=== PATIENT | female | born 1965 | race Caucasian/White ===

== ENCOUNTER 2020-10-13 21:16 | Observation (INO) ==
[2020-10-13 22:01] LABS: Basophils # (auto) 0.03 K/uL (0-0.2); Basophils % (auto) 0.4 %; Eosinophils # (auto) 0.17 K/uL (0-0.5); Hematocrit (blood only) 39.9 % (37-47); Hemoglobin 13.5 g/dL (12.0-16.0); Immature Granulocytes # (auto) 0.01 K/uL (0.00-0.02); Immature Granulocytes % (auto) 0.1 %; Lymphocytes # (auto) 3.26 K/uL (1.2-3.4); Lymphocytes % (auto) 39.1 %; Mean Corpuscular Hgb Conc 33.8 g/dL (32-36); Mean Corpuscular Volume 91.5 fL (80-100); Mean Platelet Volume 9.6 fL (7.4-10.4); Monocytes % (auto) 7.2 %; Neutrophils # (auto) 4.26 K/uL (1.4-6.5); Neutrophils % (auto) 51.2 %; Platelet Count 293 K/uL (130-400); RDW Coefficient of Variation 13.1 % (11.5-14.5); Red Blood Count 4.36 M/uL (4.2-5.4); White Blood Count 8.33 K/uL (4.8-10.8)
[2020-10-13] MEDS ORDERED: OPTIRAY 320 125ml IV ONE (22:05)
--- NOTE | 2020-10-13 22:08 | Emergency Department Note ---
History of Present Illness General Chief complaint: Neuro Symptoms/Deficit Stated complaint: NEURO SX Time Seen by Provider: 10/13/20 21:39 Source: patient and family History of Present Illness Provider complaint: Right arm pain Onset (ago): hour(s) (Starting at 8 PM tonight) Location: upper extremity and left Radiation: non-radiation Pain Consistency: + constant Maximum Pain Intensity: 6 Quality: + sharp Relieved By: + none Associated symptoms: + shortness of breath; no chest pain, no cough, no fever/chills, no headaches, no nausea/vomiting and no syncope This is a 55-year-old female with a history of breast cancer presenting with left arm pain starting approximately 8 PM tonight. The patient states she was sitting and not doing anything in particular when she developed pain in the Left bicep. She states that sharp and radiated down to her fingers. She denies any pain in her neck or chest. She states that she did feel short of breath and felt like something was not right. She did not know exactly what. She does think that about 1/2-hour prior to this she felt some weakness in the left arm. She denies any numbness in her extremities and states the left arm feels heavy. She states that her legs feel weak as well.She called her daughter who came over. Her daughter states that she was shaking all over and was talking to her telling her that something was not right. They called EMS. The nurse notes that when she arrived here she was hyperventilating and complaining of paresthesias to her fingers and they try to slow her breath down. She states she is not currently short of breath. She is complaining mostly of arm pain. She denies any trouble swallowing but states her tongue feels thick as if it is dehydrated.She denies any headache, fever, cough or cold symptoms, abdominal pain, vomiting or diarrhea. She denies exposure to COVID-19. Home Medications Medication Instructions Recorded Confirmed Type cetirizine 10 mg capsule 10 mg PO DAILY PRN 12/31/19 10/13/20 History multivitamin 1 tab PO DAILY 12/31/19 10/13/20 History calcium carbonate-vitamin D3 1 tab PO BID 10/13/20 10/13/20 History [Calcium 600 + D(3)] Allergies Allergy/AdvReac Type Severity Reaction Status Date / Time No Known Allergies Allergy Verified 10/13/20 21:42 Past Med/Surg History Medical History Allergic rhinitis Degeneration of intervertebral disc of cervical region H/O viral warts Neuralgia and neuritis Perforated tympanic membrane Sebopsoriasis Spondylosis with myelopathy Status post placement of implantable loop recorder Surgical History H/O right breast biopsy History of bilateral cataract extraction Family History Mother Breast cancer DCIS Father , age 74 unknown cause Diabetes Sister No problems noted. Sister No problems noted. Sister No problems noted. Sister No problems noted. Sister No problems noted. Brother No problems noted. Brother No problems noted. 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 and A total of 10 systems reviewed and were otherwise negative Physical Exam Vital Signs Vital Signs - 24 hr 10/13/20 21:41 10/13/20 21:58 10/13/20 22:09 Temperature 36.5 C Temperature Source Oral Pulse Rate 109 H 107 H Pulse Rate from SpO2 Sensor 109 H Respiratory Rate 18 25 H Blood Pressure 151/89 H 145/103 H Blood Pressure Mean 109 122 Pulse Oximetry 100 99 96 Oxygen Delivery Method Room Air Room Air Room Air Sepsis Recent Fever Within 48 Hours No Sepsis New/Unexplained Change in Mental Status N/A Sepsis Action Taken by Nursing No Action Required 10/13/20 22:33 10/13/20 22:40 10/13/20 23:00 Temperature Temperature Source Pulse Rate 105 H 101 H 91 H Pulse Rate from SpO2 Sensor 101 H 92 H Respiratory Rate 20 23 14 Blood Pressure 141/89 H 147/90 H 134/77 Blood Pressure Mean 101 113 88 Pulse Oximetry 97 96 Oxygen Delivery Method Room Air Room Air Sepsis Recent Fever Within 48 Hours Sepsis New/Unexplained Change in Mental Status Sepsis Action Taken by Nursing Constitutional: Vital signs reviewed. Eyes: Pupils are equal round reactive to light. Conjunctiva are noninjected. ENT: Pharynx is clear without erythema or exudate. Mucous membranes are moist. Neck supple without meningeal signs. Respiratory: Clear to auscultation bilaterally. Breath sounds are equal bilaterally. Cardiovascular: Tachycardic. Regular rhythm. GI: Soft, nondistended and nontender. Bowel sounds are present. Musculoskeletal: No peripheral edema. No lower extremity tenderness. No swelling to the left upper extremity. Distal pulses are intact. Mild tenderness with palpation of her bicep. No deformity or erythema or increased warmth. Integumentary: No cyanosis. or jaundice. Neurologic: The patient is awake and alert. Cranial nerves II-XII are intact. Motor is 5 out of 5 all extremities except the left upper extremity which is 4 out of 5. Sensation is intact to light touch all extremities. Normal speech. No pronator drift. No limb ataxia. Psychiatric: Very anxious appearing Course Administered Medications Magnesium Sulfate/Dextrose (Magnesium Sulfate / D5w) 1 gm in 100 mls @ 50 mls/hr IV ONE ONE Stop: 10/14/20 01:17 Last Admin: 10/13/20 23:42 Dose: 50 mls/hr Documented by: [id number] Discontinued Medications Aspirin (Aspirin Chew 324 Mg) 324 mg PO NOW STA Stop: 10/13/20 23:02 Last Admin: 10/13/20 23:42 Dose: 324 mg Documented by: [id number] Ioversol (Optiray 320 125ml) 118 ml IV ONCE ONE Stop: 10/13/20 22:06 Last Admin: 10/13/20 22:07 Dose: 118 ml Documented by: [id number] Medical Decision Making Differential Diagnosis CVA, TIA, intracranial mass, anginal equivalent, strain Medical Records Attestation: I reviewed the patient's medical records. The patient was seen by [facility] cardiology in November for a 9-month history of syncope. She had an electrophysiologic study. Stress echocardiogram showed no evidence of inducible ischemia. She did have a 2D echo which showed a atrial septal aneurysm. There is a possible patent foramen ovale. Home Medications Current Medication List: was personally reviewed by me Laboratory Data Attestation: I reviewed the patient's lab results. Result diagrams: 10/13/20 21:35 10/13/20 21:35 Lab Results 10/13/20 10/13/20 10/13/20 Range/Units 21:35 21:35 21:35 WBC 8.33 (4.8-10.8) K/uL RBC 4.36 (4.2-5.4) M/uL Hgb 13.5 (12.0-16.0) g/dL Hct 39.9 (37-47) % MCV 91.5 (80-100) fL MCH 31.0 (25-34) pg MCHC 33.8 (32-36) g/dL RDW Std Deviation 44.0 (36.4-46.3) fL RDW Coeff of Renato 13.1 (11.5-14.5) % Plt Count 293 (130-400) K/uL MPV 9.6 (7.4-10.4) fL Immature Gran % (Auto) 0.1 % Neut % (Auto) 51.2 % Lymph % (Auto) 39.1 % [place] % (Auto) 7.2 % Eos % (Auto) 2.0 % Baso % (Auto) 0.4 % Neut # (Auto) 4.26 (1.4-6.5) K/uL Lymph # (Auto) 3.26 (1.2-3.4) K/uL [place] # (Auto) 0.60 H (0.11-0.59) K/uL Eos # (Auto) 0.17 (0-0.5) K/uL Baso # (Auto) 0.03 (0-0.2) K/uL Immature Gran # (Auto) 0.01 (0.00-0.02) K/uL PT 10.2 (9.0-12.0) Seconds INR 1.0 (0.9-1.1) APTT 31.8 H (21.0-31.0) Seconds PTT Ratio 1.1 Sodium 142 (136-145) mmol/L Potassium 3.7 (3.5-5.1) mmol/L Chloride 110 H (98-107) mmol/L Carbon Dioxide 22 (21-32) mmol/L Anion Gap 10.0 (3-11) BUN 21 H (7-18) mg/dl Creatinine 1.07 (0.6-1.2) mg/dl Est Cr Clr Drug Dosing 55.3 ml/min Est GFR ( Amer) 66.7 Est GFR (Non-Af Amer) 57.6 BUN/Creatinine Ratio 20.0 (10-20) Glucose 106 H (70-99) mg/dl Calcium 9.2 (8.5-10.1) mg/dl Magnesium 1.7 L (1.8-2.4) mg/dl Total Bilirubin 0.3 (0.2-1) mg/dl AST 26 (15-37) U/L ALT 30 (12-78) U/L Alkaline Phosphatase 107 (45-117) U/L Troponin I < 0.015 (0-0.045) ng/ml Total Protein 7.4 (6.4-8.2) gm/dl Albumin 3.9 (3.4-5.0) gm/dl Globulin 3.5 (2.5-4.0) gm/dl Albumin/Globulin Ratio 1.1 (0.9-2) Specimen Hemolysis Blood Type Antibody Screen 10/13/20 Range/Units 21:55 WBC (4.8-10.8) K/uL RBC (4.2-5.4) M/uL Hgb (12.0-16.0) g/dL Hct (37-47) % MCV (80-100) fL MCH (25-34) pg MCHC (32-36) g/dL RDW Std Deviation (36.4-46.3) fL RDW Coeff of Renato (11.5-14.5) % Plt Count (130-400) K/uL MPV (7.4-10.4) fL Immature Gran % (Auto) % Neut % (Auto) % Lymph % (Auto) % [place] % (Auto) % Eos % (Auto) % Baso % (Auto) % Neut # (Auto) (1.4-6.5) K/uL Lymph # (Auto) (1.2-3.4) K/uL [place] # (Auto) (0.11-0.59) K/uL Eos # (Auto) (0-0.5) K/uL Baso # (Auto) (0-0.2) K/uL Immature Gran # (Auto) (0.00-0.02) K/uL PT (9.0-12.0) Seconds INR (0.9-1.1) APTT (21.0-31.0) Seconds PTT Ratio Sodium (136-145) mmol/L Potassium (3.5-5.1) mmol/L Chloride (98-107) mmol/L Carbon Dioxide (21-32) mmol/L Anion Gap (3-11) BUN (7-18) mg/dl Creatinine (0.6-1.2) mg/dl Est Cr Clr Drug Dosing ml/min Est GFR ( Amer) Est GFR (Non-Af Amer) BUN/Creatinine Ratio (10-20) Glucose (70-99) mg/dl Calcium (8.5-10.1) mg/dl Magnesium (1.8-2.4) mg/dl Total Bilirubin (0.2-1) mg/dl AST (15-37) U/L ALT (12-78) U/L Alkaline Phosphatase (45-117) U/L Troponin I (0-0.045) ng/ml Total Protein (6.4-8.2) gm/dl Albumin (3.4-5.0) gm/dl Globulin (2.5-4.0) gm/dl Albumin/Globulin Ratio (0.9-2) Specimen Hemolysis Blood Type A Positive Antibody Screen NEGATIVE Imaging Data Radiologist's Impression: Preliminary Findings Only See Final Report For Complete Findings CT HEAD: Impression: No intracranial hemorrhage or evidence of large territorial infarction. No mass lesion, mass effect, or hydrocephalus. No skull base or calvarium fracture. Radiologist: Anmol Blackwood MD Study ready at 22:10 and initial results transmitted at 22:14 Communications: Clear Time Type Notes Call Doctor Stroke Preliminary Findings Only See Final Report For Complete Findings CTA HEAD: Impression: No large vessel occlusion, aneurysm, or hemodynamically significant stenosis. Radiologist: Anmol Blackwood MD Study ready at 22:18 and initial results transmitted at 22:25 Preliminary Findings Only See Final Report For Complete Findings CTA NECK: Impression: No dissection, pseudoaneurysm, or hemodynamically significant stenosis of the carotid or vertebral arteries. Multilevel degenerative changes cervical spine which results in varying degrees of spinal canal stenosis and foraminal narrowing. Radiologist: Anmol Blackwood MD Study ready at 22:24 and initial results transmitted at 22:28 ECG Data Attestation: I personally reviewed and interpreted this ECG as follows: Indication: + other (Stroke symptoms) Rate (beats per minute): 94 Rhythm: + normal sinus ECG ST segments: + ST depression (Inferior laterally); no ST elevation ECG Findings: no PVCs Comparison ECG Date: from (November 12, 2019) Change: the following changes noted (ST depressions appear to be new) MDM Narrative I did evaluate the patient as noted above. Patient is presenting with atypical symptoms for stroke. She has left arm pain and weakness starting at approximately 7:30 PM tonight.On exam she does have some mild weakness in the left arm but otherwise is neurologically intact. She is extremely anxious appearing. I did obtain history from the patient as well as her daughter. I did call a stroke alert. I did discuss the case with the [place] stroke neurologist. IV access was established. I did place an order for continuous cardiac monitoring. The monitor showed Normal sinus rhythm at a rate of 91 bpm. I did order and personally review the patient's 12-lead EKG as described above. She has ST depressions in the inferior lateral leads. These were not present on her previous EKG from November of this year.She denies having any chest discomfort or pain. I did order a stat CT of the head as well as CT angiogram of the head and neck. I did review the images myself as well as the radiology report as described above.there is no evidence of acute CVA or intracranial process. CT angiograms did not show any evidence of acute abnormality. I did order and review the patient's blood work as noted in the electronic medical record. She has hypomagnesemia with a magnesium of 1.7. Troponin is negative. CBC and electrolytes are unremarkable. On reassessment the patient's symptoms seem to be improved significantly after CAT scan. She also is no longer anxious appearing. She was seen by the stroke neurologist via telemedicine who agreed that IV TPA was not indicated given her mild and rapidly improving symptoms as well as atypical presentation. After evaluation of patient he recommended that the patient have an MRI and EEG. I did treat the patient with aspirin. I did recommend hospitalization for further work-up. I did discuss the case with the hospitalist and piano case maker. Impression & Plan Left arm weakness, Arm pain, left, Abnormal ECG, Hypomagnesemia Discharge Plan Visit Data Chief Complaint: Neuro Symptoms/Deficit Stated Complaint: NEURO SX ED Provider: Juan Dang Discharge Problem: Left arm weakness, Arm pain, left, Abnormal ECG, Hypomagnesemia Patient Disposition: Being Evaluated by Hospitalist Forms Stand Alone Forms: [facility] Prescriptions Prescriptions: No Action multivitamin Tablet 1 tab PO DAILY RF: 0 Zyrtec 10 mg capsule 10 mg PO DAILY PRN (Reason: Allergy Symptoms) RF: 0 calcium carbonate-vitamin D3 [Calcium 600 + D(3)] 600 mg(1,500mg) -400 unit tablet 1 tab PO BID RF: 0 Referrals Referrals: Brennan Mcleod MD [Primary Care Provider] -
[2020-10-13 22:14] LABS: Partial Thromboplastin Ratio 1.1; Partial Thromboplastin Time 31.8 Seconds (21.0-31.0); Prothrombin Time 10.2 Seconds (9.0-12.0)
[2020-10-13 22:21] LABS: Alanine Aminotransferase 30 U/L (12-78); Albumin Globulin Ratio 1.1 (0.9-2); Albumin Level 3.9 gm/dl (3.4-5.0); Alkaline Phosphatase 107 U/L (45-117); Aspartate Aminotransferase 26 U/L (15-37); Bilirubin,Total 0.3 mg/dl (0.2-1); Blood Urea Nitrogen 21 mg/dl (7-18); Calcium 9.2 mg/dl (8.5-10.1); Carbon Dioxide 22 mmol/L (21-32); Chloride 110 mmol/L (98-107); Creatinine Clr Calc Pharmacy 55.3 ml/min; Est GFR (African American) 66.7; Est GFR (Non-African American) 57.6; Globulin 3.5 gm/dl (2.5-4.0); Glucose 106 mg/dl (70-99); Magnesium 1.7 mg/dl (1.8-2.4); Potassium 3.7 mmol/L (3.5-5.1); Sodium 142 mmol/L (136-145); Total Protein 7.4 gm/dl (6.4-8.2); Troponin I < 0.015 ng/ml (0-0.045)
[2020-10-13] MEDS ORDERED: ASPIRIN CHEW 324 MG PO STA (23:01)
[2020-10-13] MEDS ORDERED: MAGNESIUM SULFATE / D5W 1 GM/100 ML BAG IV ONE (23:18)
[2020-10-13] MEDS ORDERED: LACTATED RINGER'S 1,000 ML IV ONE (23:29)
--- NOTE | 2020-10-14 00:30 | History & Physical Report ---
Date of Service October 14, 2020 Assessment & Plan (1) Left arm weakness: Transient symptoms Rule out TIA, hx PFO on outpatient TTE for syncope workup breast cancer status post surgery, radiation, on Letrozole Rx recurrent syncope status post implantable loop recorder placement (2018), No arrhythmias correlating with patient's symptoms on review of recent transmission as per outpatient documentation ongoing tobacco abuse OBS Medical telemetry Neurochecks MRI brain, EEG as per [facility] telestroke specialist recommendation Aspirin for stroke prevention until stroke ruled out Neurology consult RE transient LUE weakness Nicotine patch as needed DVT prophylaxis per Lovenox subcu Full code Text document was generated using [employer] voice recognition software. It may contain grammatical or spelling errors. Kindly contact undersigned for clarification of any documentation item in question. History of Present Illness Chief Complaint: Left upper extremity pain, weakness Primary Care Provider: Brennan Mcleod MD History obtained from patient and records. Medical history significant for breast cancer status post surgery, radiation, on Letrozole Rx, recurrent syncope status post implantable loop recorder placement (2019), hx PFO, ongoing tobacco abuse. Patient was watching television last night when she noted sudden onset achy left upper extremity pain with associated weakness and tingling of the hands. No unusual neck pain or recollection of recent trauma.. No prior episodes. No chest pain, no S OB. Stroke alert called upon arrival at the ER. Aspirin given at the ER. Symptoms currently resolved. Medical History as above Surgical History : Breast biopsy, partial mastectomy, BTL Family History : Breast cancer, DM, migraine Personal/Social history : Sick cigarettes a day, no EtOH intake, currently unemployed/prior restaurant work Allergies Allergy/AdvReac Type Severity Reaction Status Date / Time No Known Allergies Allergy Verified 10/13/20 21:42 Home Medications Medication Instructions Recorded Confirmed Type cetirizine 10 mg capsule 10 mg PO DAILY PRN 12/31/19 10/13/20 History multivitamin 1 tab PO DAILY 12/31/19 10/13/20 History calcium carbonate-vitamin D3 1 tab PO BID 10/13/20 10/13/20 History [Calcium 600 + D(3)] Past Med/Surg History Medical History Allergic rhinitis Degeneration of intervertebral disc of cervical region H/O viral warts Neuralgia and neuritis Perforated tympanic membrane Sebopsoriasis Spondylosis with myelopathy Status post placement of implantable loop recorder Surgical History H/O right breast biopsy History of bilateral cataract extraction Family History Mother Breast cancer DCIS Father , age 74 unknown cause Diabetes Sister No problems noted. Sister No problems noted. Sister No problems noted. Sister No problems noted. Sister No problems noted. Brother No problems noted. Brother No problems noted. 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 Other Information That Helps Us Care for You: No Feels Safe at Home: Yes Safety Concerns: Feels Safe At This Time Childhood Exposure to Second-Hand Smoke: No caffeine: Yes (coffee 4-5 cups per day) during the past year weight has: remained stable Dental Care, Regularly: Yes Physical Activity Frequency: Does not Exercise Seatbelt Use: always Sunscreen Use: Yes Assistive Devices: Glasses Review of Systems Review of Systems: As per HPI, all 10 systems reviewed, all other ROS negative Physical Exam Physical Exam: GENERAL: Comfortable, pleasant, no respiratory distress SKIN: Normal color, warm HEENT: [place] palpebral conjunctivae, no ptosis, dry buccal mucosa NECK : Supple, no tenderness CHEST : CTA, no tenderness HEART : RRR, no obvious murmurs ABDOMEN: Some distention, nontender EXTREMITIES : No LE swelling/tenderness, no other conspicuous deformities noted NEUROLOGIC : Coherent, no facial asymmetry, no other gross focality Results & Data Results & Data ([facility]) Vital Signs (Past 12 Hours) Vital Signs Temp Pulse Resp BP Pulse Ox 10/13/20 23:00 91 H 14 134/77 96 10/13/20 22:40 101 H 23 147/90 H 97 10/13/20 22:33 105 H 20 141/89 H 10/13/20 22:09 107 H 25 H 145/103 H 96 10/13/20 21:58 99 10/13/20 21:41 36.5 C 109 H 18 151/89 H 100 Laboratory Results Laboratory Results WBC 8.33 K/uL (4.8-10.8) 10/13/20 21:35 RBC 4.36 M/uL (4.2-5.4) 10/13/20 21:35 Hgb 13.5 g/dL (12.0-16.0) 10/13/20 21:35 Hct 39.9 % (37-47) 10/13/20 21:35 MCV 91.5 fL (80-100) 10/13/20 21:35 MCH 31.0 pg (25-34) 10/13/20 21:35 MCHC 33.8 g/dL (32-36) 10/13/20 21:35 RDW Std Deviation 44.0 fL (36.4-46.3) 10/13/20 21:35 RDW Coeff of Renato 13.1 % (11.5-14.5) 10/13/20 21:35 Plt Count 293 K/uL (130-400) 10/13/20 21:35 MPV 9.6 fL (7.4-10.4) 10/13/20 21:35 Immature Gran % (Auto) 0.1 % 10/13/20 21:35 Neut % (Auto) 51.2 % 10/13/20 21:35 Lymph % (Auto) 39.1 % 10/13/20 21:35 [place] % (Auto) 7.2 % 10/13/20 21:35 Eos % (Auto) 2.0 % 10/13/20 21:35 Baso % (Auto) 0.4 % 10/13/20 21:35 Neut # (Auto) 4.26 K/uL (1.4-6.5) 10/13/20 21:35 Lymph # (Auto) 3.26 K/uL (1.2-3.4) 10/13/20 21:35 [place] # (Auto) 0.60 K/uL (0.11-0.59) H 10/13/20 21:35 Eos # (Auto) 0.17 K/uL (0-0.5) 10/13/20 21:35 Baso # (Auto) 0.03 K/uL (0-0.2) 10/13/20 21:35 Immature Gran # (Auto) 0.01 K/uL (0.00-0.02) 10/13/20 21:35 PT 10.2 Seconds (9.0-12.0) 10/13/20 21:35 INR 1.0 (0.9-1.1) 10/13/20 21:35 APTT 31.8 Seconds (21.0-31.0) H 10/13/20 21:35 PTT Ratio 1.1 10/13/20 21:35 Sodium 142 mmol/L (136-145) 10/13/20 21:35 Potassium 3.7 mmol/L (3.5-5.1) 10/13/20 21:35 Chloride 110 mmol/L (98-107) H 10/13/20 21:35 Carbon Dioxide 22 mmol/L (21-32) 10/13/20 21:35 Anion Gap 10.0 (3-11) 10/13/20 21:35 BUN 21 mg/dl (7-18) H 10/13/20 21:35 Creatinine 1.07 mg/dl (0.6-1.2) 10/13/20 21:35 Est Cr Clr Drug Dosing 55.3 ml/min 10/13/20 21:35 Est GFR ( Amer) 66.7 10/13/20 21:35 Est GFR (Non-Af Amer) 57.6 10/13/20 21:35 BUN/Creatinine Ratio 20.0 (10-20) 10/13/20 21:35 Glucose 106 mg/dl (70-99) H 10/13/20 21:35 Calcium 9.2 mg/dl (8.5-10.1) 10/13/20 21:35 Magnesium 1.7 mg/dl (1.8-2.4) L 10/13/20 21:35 Total Bilirubin 0.3 mg/dl (0.2-1) 10/13/20 21:35 AST 26 U/L (15-37) 10/13/20 21:35 ALT 30 U/L (12-78) 10/13/20 21:35 Alkaline Phosphatase 107 U/L (45-117) 10/13/20 21:35 Troponin I < 0.015 ng/ml (0-0.045) 10/13/20 21:35 Total Protein 7.4 gm/dl (6.4-8.2) 10/13/20 21:35 Albumin 3.9 gm/dl (3.4-5.0) 10/13/20 21:35 Globulin 3.5 gm/dl (2.5-4.0) 10/13/20 21:35 Albumin/Globulin Ratio 1.1 (0.9-2) 10/13/20 21:35 Specimen Hemolysis 10/13/20 21:35 Blood Type A Positive 10/13/20 21:55 Antibody Screen NEGATIVE 10/13/20 21:[address] head initial read: No intracranial hemorrhage or evidence of large territorial infarction. No mass lesion, mass-effect or hydrocephalus. No skull base or calvarium fracture. CTA head initial read: There is no hemorrhage, mass effect, or evidence of acute territorial ischemia by CT criteria noting angiographic phase technique. CTA neck initial read: No dissection, pseudoaneurysm, or hemodynamically significant stenosis of the carotid or vertebral arteries. Venous ultrasound LUE: No evidence of left upper extremity DVT. EKG as per my interpretation: Rate 95, NSR, normal axis, T wave abnormalities septal leads
[2020-10-14 01:16] LABS: Creatine Kinase 81 U/L (26-192)
[2020-10-14 01:33] LABS: Lyme Ab IgG w/WB Rflx Negative (Negative); Lyme Ab IgM w/WB Rflx Negative (Negative)
[2020-10-14] MEDS ORDERED: PHARMACIST DISCHARGE MED REC CONSULT PRN (02:20)
[2020-10-14] MEDS ORDERED: ACETAMINOPHEN 325 MG TAB PO PRN (02:20)
[2020-10-14] MEDS ORDERED: PROMETHAZINE HCL 12.5 MG in SODIUM CHLORIDE 0.9% 50 ML IV PRN (02:20)
[2020-10-14] MEDS ORDERED: CETIRIZINE HCL 10 MG TABLET PO PRN (02:20)
[2020-10-14] MEDS ORDERED: MoRPHine SULFATE 4 MG/ML 1 ML CARP\\VIAL IV PRN (02:20)
[2020-10-14] MEDS ORDERED: LORazepam 0.25 MG/0.5 ML VIAL IV PRN (02:20)
[2020-10-14] MEDS ORDERED: oxyCODONE HCL IR 5 MG TAB (IMMEDIATE RELEASE) PO PRN (02:20)
[2020-10-14] MEDS ORDERED: INFLUENZA VIRUS QUAD VACCINE 0.5 ML SYR IM ONE (02:32)
[2020-10-14] MEDS ORDERED: INFLUENZA ADMINISTRATION CHARGE ONE (02:32)
--- NOTE | 2020-10-14 06:45 | CT Scan Report ---
CT head/brain wo con CLINICAL HISTORY: 55 years-old Female with left arm weak eval for cva. Acute strokelike symptoms TECHNIQUE: Multiple axial CT images of the head were obtained without contrast. A dose lowering tech nique was utilized adhering to the principles of ALARA. COMPARISON: CTA of the head and neck and brain MRI studies of same day FINDINGS: No acute intracranial hemorrhage, midline shift, intracranial mass, hydrocephalus, territorial ischem ia or abnormal extra-axial collection. The calvarium is intact. Trace right mastoid effusion. Left mastoid air cells are clear. Paranasal s inuses are also generally clear. IMPRESSION: No acute intracranial abnormality. ACT 112: Negative or not required by law. The above report was generated using voice recognition software. It may contain grammatical, syntax o r spelling errors. Electronically signed by: Blu Mcintosh M.D. 10/14/2020 6:44 AM
--- NOTE | 2020-10-14 06:49 | Magnetic Resonance Report ---
MR brain wo con HISTORY: 55 years-old Female transient LUE weakness acute strokelike symptoms COMPARISON: CTA of the head, CTA head and neck studies of same day TECHNIQUE: Multiplanar multisequence MRI of the brain was obtained without the use of IV contrast. FINDINGS: There is no restricted diffusion to suggest acute or subacute infarct. The midline structures includi ng the corpus callosum, brainstem, optic chiasm, pituitary and pineal glands appear unremarkable the sagittal T1 series. No cerebellar tonsillar herniation. There is no acute intracranial hemorrhage, midline shift, abnormal extra-axial collection, hydrocepha stacia or intracranial mass. There are a few scattered punctate T-2/flair hyperintensities throughout th e white matter, likely of no clinical significance. Slow venous flow noted within the patent superior sagittal sinus. Cerebral venous sinuses and major arterial flow voids at the level of the skull base are patent. No pathologic blooming artifact. Trace left and small right mastoid effusions. Paranasal sinuses are clear. Prior bilateral lens replacement. The skull and soft tissues are unremarkable. IMPRESSION: No acute intracranial abnormality, specifically there is no acute or subacute infarct. ACT 112: Negative or not required by law. The above report was generated using voice recognition software. It may contain grammatical, syntax o r spelling errors. Electronically signed by: Blu Mcintosh M.D. 10/14/2020 6:48 AM
--- NOTE | 2020-10-14 07:23 | CT Scan Report ---
CT ANGIOGRAM OF THE BRAIN; CT ANGIOGRAM OF THE NECK CLINICAL HISTORY: Left upper extremity weakness. COMPARISON STUDY: CT of the brain performed concurrently on 10/13/2020. TECHNIQUE: Following the IV administration of 118 of Optiray 320, CT angiogram of the head and neck w as performed from the aortic arch to the vertex. Images are reviewed in the axial, sagittal, and sylvia nal planes. 3-D MIPS images are created and assessed. IV contrast was administered without complicati on. All measurements were calculated based on NASCET criteria. A dose lowering technique was utilize d adhering to the principles of ALARA. CT DOSE: 1054.94 mGy.cm FINDINGS: Brain parenchyma: The brain parenchyma is normal in appearance. There is no hemorrhage, mass effect, or evidence of acute territorial ischemia by CT criteria. There is no evidence of enhancing mass lesi on on the angiogram phase images. The ventricles, sulci, and cisterns are normal in configuration. Gr ay-white matter differentiation is preserved. No extra-axial fluid collection is seen. Thoracic aorta: Visualized portions of the thoracic aorta are normal in caliber. The aortic arch demo nstrates standard 3-vessel anatomy. Right carotid arterial system: The right common carotid artery is widely patent, as are the right int ernal and external carotid arteries. Left carotid arterial system: The left common carotid artery is widely patent, as are the left diversity intern al and external carotid arteries. Vertebral arteries: The vertebral arteries are widely patent bilaterally noting left-sided dominance. Subclavian arteries: Widely patent bilaterally. Intracranial vasculature: The internal carotid arteries are patent at the skull base, as are the ante rior and middle cerebral arteries bilaterally. The vertebrobasilar system and posterior cerebral bridget ollie are widely patent. The left vertebral artery is dominant. There is no aneurysm, high-grade steno sis, or focal vessel cut off seen throughout the intracranial circulation. Jugular veins: Patent bilaterally. Dural sinuses: Patent. Lung apices: Tiny blebs are seen at the lung apices. Upper lobe lung parenchyma is otherwise clear as imaged. Soft tissues: The visualized pharyngeal soft tissues are normal in appearance noting angiographic pha se technique. The oropharyngeal airway appears widely patent. The salivary and thyroid glands are nor mal in appearance. No cervical lymphadenopathy is seen. Skeletal structures: The skeletal structures are osteopenic. The calvarium appears intact. The cervic al spine is maintained noting spondylotic change. No lytic or blastic lesion is seen. Sinuses and mastoids: The paranasal sinuses are clear. The mastoid air cells are well pneumatized. IMPRESSION: 1. There is no hemorrhage, mass effect, or evidence of acute territorial ischemia by CT criteria noti ng angiographic phase technique. 2. Unremarkable CT angiogram of the brain. 3. Unremarkable CT angiogram of the neck. ACT 112: Negative or not required by law. Electronically signed by: Jonah Granados M.D. 10/14/2020 7:21 AM
--- NOTE | 2020-10-14 07:46 | Electrocardiogram Report ---
Test Reason : Blood Pressure : / mmHG Vent. Rate : 094 BPM Atrial Rate : 094 BPM P-R Int : 124 ms QRS Dur : 076 ms QT Int : 356 ms P-R-T Axes : 074 060 061 degrees QTc Int : 445 ms Normal sinus rhythm Nonspecific ST abnormality Abnormal ECG No previous ECGs available Confirmed by Klaus Phillips ([id number]) on 10/14/2020 7:45:46 AM Referred By: REFERRED SELF Confirmed By:Ayo Phillips
[2020-10-14 08:01] LABS: Basophils # (auto) 0.04 K/uL (0-0.2); Basophils % (auto) 0.6 %; Eosinophils # (auto) 0.16 K/uL (0-0.5); Eosinophils % (auto) 2.3 %; Hematocrit (blood only) 38.2 % (37-47); Hemoglobin 12.9 g/dL (12.0-16.0); Immature Granulocytes # (auto) 0.01 K/uL (0.00-0.02); Immature Granulocytes % (auto) 0.1 %; Lymphocytes # (auto) 2.51 K/uL (1.2-3.4); Lymphocytes % (auto) 36.6 %; Mean Corpuscular Hemoglobin 31.4 pg (25-34); Mean Corpuscular Hgb Conc 33.8 g/dL (32-36); Mean Corpuscular Volume 92.9 fL (80-100); Mean Platelet Volume 9.4 fL (7.4-10.4); Monocytes % (auto) 5.8 %; Neutrophils # (auto) 3.74 K/uL (1.4-6.5); Neutrophils % (auto) 54.6 %; Platelet Count 255 K/uL (130-400); RDW Coefficient of Variation 13.4 % (11.5-14.5); RDW Standard Deviation 45.4 fL (36.4-46.3); Red Blood Count 4.11 M/uL (4.2-5.4); White Blood Count 6.86 K/uL (4.8-10.8)
--- NOTE | 2020-10-14 08:08 | Ultrasound Report ---
US venous doppler UE LT CLINICAL HISTORY: LUE pain COMPARISON STUDY: No previous studies for comparison. FINDINGS: No intraluminal thrombus was visualized. The internal jugular, subclavian, axillary, cephal ic, brachial, basilic, radial, and ulnar veins were patent. IMPRESSION: No evidence of left upper extremity DVT. ACT 112: Negative or not required by law. Electronically signed by: Aubrey Kaiser M.D. 10/14/2020 8:07 AM
[2020-10-14 08:30] LABS: BUN Creatinine Ratio 21.8 (10-20); Blood Urea Nitrogen 16 mg/dl (7-18); Calcium 8.8 mg/dl (8.5-10.1); Carbon Dioxide 25 mmol/L (21-32); Chloride 108 mmol/L (98-107); Cholesterol 179 mg/dl (0-200); Creatinine Clr Calc Pharmacy 68.5 ml/min; Est GFR (African American) 102.6; Est GFR (Non-African American) 88.5; Glucose 99 mg/dl (70-99); Potassium 3.8 mmol/L (3.5-5.1); Sodium 140 mmol/L (136-145)
[2020-10-14 08:33] LABS: Chol HDL Ratio 4; HDL Cholesterol 46 mg/dl; LDL Cholesterol Calculated 108 mg/dl; Magnesium 2.2 mg/dl (1.8-2.4); Triglycerides 125 mg/dl (0-150); Troponin I < 0.015 ng/ml (0-0.045); VLDL Cholesterol 25 mg/dl
[2020-10-14 08:45] LABS: Estimated Average Glucose 126 mg/dl
[2020-10-14] MEDS ORDERED: MULTIVITAMIN TAB PO SCH (09:00)
[2020-10-14] MEDS ORDERED: ENOXAPARIN INJ 40 MG/0.4 ML SYR SQ SCH (09:00)
[2020-10-14] MEDS ORDERED: ASPIRIN 81 MG ECTAB PO SCH (09:00)
--- NOTE | 2020-10-14 10:38 | Electroencephalogram ---
EEG Procedure Note Date of Service October 14, 2020 Start / End Times Start Time: 05:56 End Time: 06:[address] Dileep Zhu History A 55-year-old woman with recurrent syncope. EEG performed for evaluation of epileptiform activity. Home Medication List Medication Instructions Recorded Confirmed Type cetirizine 10 mg capsule 10 mg PO DAILY PRN 12/31/19 10/13/20 History multivitamin 1 tab PO DAILY 12/31/19 10/13/20 History calcium carbonate-vitamin D3 1 tab PO BID 10/13/20 10/13/20 History [Calcium 600 + D(3)] Inpatient Medication List Aspirin (Aspirin 81 Mg Ectab) 81 mg PO QAM [facility] Stop: 11/13/20 08:59 Last Admin: 10/14/20 09:30 Dose: 81 mg Documented by: [id number] Enoxaparin Sodium (Enoxaparin Inj 40 Mg/0.4 Ml Syr) 40 mg SQ QAM [facility] Stop: 11/13/20 08:59 Last Admin: 10/14/20 09:31 Dose: 40 mg Documented by: [id number] Multivitamins (Multivitamin Tab) 1 tab PO DAILY ANTWAN Stop: 11/13/20 08:59 Last Admin: 10/14/20 09:31 Dose: 1 tab Documented by: [id number] Discontinued Medications Aspirin (Aspirin Chew 324 Mg) 324 mg PO NOW STA Stop: 10/13/20 23:02 Last Admin: 10/13/20 23:42 Dose: 324 mg Documented by: [id number] Magnesium Sulfate/Dextrose (Magnesium Sulfate / D5w) 1 gm in 100 mls @ 50 mls/hr IV ONE ONE Stop: 10/14/20 01:17 Last Infusion: 10/14/20 01:44 Dose: 0 mls/hr Documented by: [id number] Admin: 10/13/20 23:42 Dose: 50 mls/hr Documented by: [id number] Lactated Ringer's (Lr) 1,000 mls @ 100 mls/hr IV .Q10H ONE Stop: 10/14/20 09:28 Last Admin: 10/14/20 03:31 Dose: 100 mls/hr Documented by: [id number] Ioversol (Optiray 320 125ml) 118 ml IV ONCE ONE Stop: 10/13/20 22:06 Last Admin: 10/13/20 22:07 Dose: 118 ml Documented by: [id number] Description This is a 21 electrode EEG with a single channel dedicated to limited EKG. The electrodes were placed in accordance with the International 10-20 system. Report: At the onset of the EEG the patient is awake. The background is symmetric and well organized. The posterior dominant rhythm is 9 Hz. There is a normal anterior to posterior gradient with low amplitude indeterminate activity in the frontal head regions. Photic stimulation does not induce any abnormalities. Drowsiness is characterized by increased theta activity, reduced blink rate, and decreased myogenic artifact. No stage 2 sleep transients are recorded. Impression: This is a normal awake and drowsy routine EEG. There is no evidence of focal slowing or epileptiform activity.
--- NOTE | 2020-10-14 13:46 | Neurology Consultation ---
Date of Consultation October 14, 2020 Assessment & Plan (1) Left arm weakness: 1. MRI brain - no acute findings 2. CTA head/neck- no significant stenosis or abnormalities 3. TTE- no ASD 4. EEG- no seizure focus seen 5. start aspirin 81 mg daily 6. optimize HTN HLD DM LDL <70 7. start mg ++ ox 400 mg daily and riboflavin 400 mg daily 8. unclear if the episodes are complex migraines, TIA? 9. follow up in neurology 4-6 weeks, Merry Wade PAC for further recommendations. Supervising Physician Co-Signing Physician Notes I have seen and discussed above patient with Dr Kennedy Moon. Patient was seen and examined at bedside. I have reviewed and discussed this case with Merry Wade PA-C and agree with the following as noted below. Ms. Joshi is a 55 year old woman with prior Hx of migraines admitted with intermittent right arm pain. Symptoms have resolved. Pain was associated with generalized shaking and alteration of awareness. Patient back to baseline. Neuro examine normal. Tongue has no abrasion. Episode sounds consistent with non epileptic event. Routine EEG was normal. MRI brain reviewed and Negative for acute intracranial process. Patient has Linq monitor for recurrent syncope. Recommend outpatient ambulatory EEG and follow up with myself or Merry Wade PA-C. History of Present Illness Reason for Consultation: transient LUE weakness Requesting Physician: Jerod Ortega MD Attending Physician: Jerod Ortega MD History of Present Illness Cheri is a 55 year old female with PMH breast CA presenting with left arm pain starting approximately 8 PM last night. She was sitting and not doing anything in particular when she developed pain in the Left bicep. It was sharp and radiated down to her fingers. no CP. She did feel short of breath and felt like something was not right and shortly prior there was some weakness in the left arm and some leg weakness as well. She was shaking all over and was talking to her telling her that something was not right. She was hyperventilating on arrival and complaining of paresthesias to her fingers and they try to slow her breath down but her arm pain was her main complaint. She denies exposure to COVID-19. She is a 1/2 PPD smoker, minimal EtOH use, some caffeine use, no other drugs. She was dehydrated on presentation. She has an implanted heart monitor because she had been having some passing out episodes which started about a year ago, but only happen every 3-4 months and involve headache and nausea and vomiting. She did see Dr Ozuna in our office in the past for premenopause heada ches and was on topamax but they resolved after menapause. She has not been taking an aspirin. denies CP, SOB, abdominal pain, one sided weakness, current N, V. Allergies Allergy/AdvReac Type Severity Reaction Status Date / Time No Known Allergies Allergy Verified 10/13/20 21:42 Home Medications Medication Instructions Recorded Confirmed Type cetirizine 10 mg capsule 10 mg PO DAILY PRN 12/31/19 10/13/20 History multivitamin 1 tab PO DAILY 12/31/19 10/13/20 History calcium carbonate-vitamin D3 1 tab PO BID 10/13/20 10/13/20 History [Calcium 600 + D(3)] aspirin 81 mg PO QAM #30 tab 10/14/20 Rx magnesium oxide 400 mg PO DAILY #30 tab 10/14/20 Rx riboflavin (vitamin B2) 400 mg PO DAILY #30 tab 10/14/20 Rx Patient History Medical History Allergic rhinitis Degeneration of intervertebral disc of cervical region H/O viral warts Neuralgia and neuritis Perforated tympanic membrane Sebopsoriasis Spondylosis with myelopathy Status post placement of implantable loop recorder Surgical History H/O right breast biopsy History of bilateral cataract extraction Family History Mother Breast cancer DCIS Father , age 74 unknown cause Diabetes Sister No problems noted. Sister No problems noted. Sister No problems noted. Sister No problems noted. Sister No problems noted. Brother No problems noted. Brother No problems noted. 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 Other Information That Helps Us Care for You: No Feels Safe at Home: Yes Safety Concerns: Feels Safe At This Time Childhood Exposure to Second-Hand Smoke: No caffeine: Yes (coffee 4-5 cups per day) during the past year weight has: remained stable Dental Care, Regularly: Yes Physical Activity Frequency: Does not Exercise Seatbelt Use: always Sunscreen Use: Yes Assistive Devices: Glasses Review of Systems Review of Systems: All systems reviewed & are unremarkable except as noted in HPI & below and All systems reviewed & are unremarkable except as noted in S ubjective Physical Exam Physical Exam: Physical Exam: Constitutional: appearance nourished, healthy and normal Ears, Nose, Mouth and Throat: mucous membranes moist, no injection and skin normal, eyes normal Cardiovascular: normal S-1 and S-2 and regular rate and rhythm Respiratory: course BS Musculoskeletal: no peripheral edema and good distal pulses Skin: no stigmata of neurocutaneous disease noted and normal and intact Eyes: extraocular muscles intact (EOMI) and pupils equal, round and reactive to light (PERRL) NEUROLOGIC EXAMINATION: Mental status: Alert and interactive Oriented to full date and location Oriented to person Speech fluent with no evidence of aphasia Cranial Nerves smile eye brow raise symmetric Reflexes: Deep tendon reflexes were symmetrical brisk, down going toes Sensory: intact light, cool, vibration Coordination: finger to nose Gait/Stance: Posture normal. Gait normal: with steady with steps, base, turning, heel and toe walking and tandem gait. Motor: Negative for pronator drift of out stretched arms with eyes closed. Strength: hand ring conductor biceps triceps bilaterally 5/5, hip flex plantar flex ext patellar flex ext 5/5 bilaterally Results & Data ([facility]) Vital Signs (Past 12 Hours) Vital Signs Temp Pulse Pulse Pulse Resp BP BP 10/14/20 11:27 36.7 C 74 18 120/70 10/14/20 08:00 74 10/14/20 07:04 36.5 C 82 16 118/73 10/14/20 04:15 36.6 C 77 15 117/69 10/14/20 02:31 73 10/14/20 02:21 36.4 C L 78 18 129/73 Pulse Ox 10/14/20 11:27 94 10/14/20 08:00 10/14/20 07:04 96 10/14/20 04:15 96 10/14/20 02:31 10/14/20 02:21 99 Laboratory Results Abnormal lab results 10/13/20 10/13/20 10/13/20 Range/Units 21:35 21:35 21:35 RBC (4.2-5.4) M/uL [place] # (Auto) 0.60 H (0.11-0.59) K/uL APTT 31.8 H (21.0-31.0) Seconds Chloride 110 H (98-107) mmol/L BUN 21 H (7-18) mg/dl BUN/Creatinine Ratio (10-20) Glucose 106 H (70-99) mg/dl Hemoglobin A1c (4.5-5.6) % Magnesium 1.7 L (1.8-2.4) mg/dl 10/14/20 10/14/20 10/14/20 Range/Units 07:21 07:21 07:21 RBC 4.11 L (4.2-5.4) M/uL [place] # (Auto) (0.11-0.59) K/uL APTT (21.0-31.0) Seconds Chloride 108 H (98-107) mmol/L BUN (7-18) mg/dl BUN/Creatinine Ratio 21.8 H (10-20) Glucose (70-99) mg/dl Hemoglobin A1c 6.0 H (4.5-5.6) % Magnesium (1.8-2.4) mg/dl Diagnostic Findings EEG-At the onset of the EEG the patient is awake. The background is symmetric and well organized. The posterior dominant rhythm is 9 Hz. There is a normal anterior to posterior gradient with low amplitude indeterminate activity in the frontal head regions. Photic stimulation does not induce any abnormalities. Drowsiness is characterized by increased theta activity, reduced blink rate, and decreased myogenic artifact. No stage 2 sleep transients are recorded. MRI brain-No acute intracranial abnormality, specifically there is no acute or subacute infarct. CTA There is no hemorrhage, mass effect, or evidence of acute territorial ischemia by CT criteria noting angiographic phase technique. Unremarkable CT angiogram of the brain. Unremarkable CT angiogram of the neck. TTE- 60-65%, no ASD
--- NOTE | 2020-10-14 16:15 | Hospitalist Progress Note ---
Date of Service October 14, 2020 Assessment & Plan (1) Left arm weakness: Left arm weakness Strokelike symptoms Can Not R/O TIA. DD: Complex Migraine --MRI Brain:No acute intracranial abnormality, specifically there is no acute or subacute infarct. --Head/Neck CTA:There is no hemorrhage, mass effect, or evidence of acute territorial ischemia by CT criteria noting angiographic phase technique. Unremarkable CT angiogram of the brain. Unremarkable CT angiogram of the neck. -ECHO: EF 60 to 65%. No significant valvular disease. No ASD. -Lipid Panel: WNL -EEG:This is a normal awake and drowsy routine EEG. There is no evidence of focal slowing or epileptiform activity. -PT/OT eval done -Has implanted loop recorder in 2019 -Appreciate neurology input -Started on aspirin, magnesium and riboflavin -Needs follow-up with neurology in 4 to 6 weeks upon discharge -Advised to quit tobacco use Breast cancer S/P surgery, radiation on Letrozole Rx Recurrent syncope S/P Implantable loop recorder placement (2018), No rhythm issues on monitor Advised to follow-up with cardiology as outpatient Has follow-up with Dr. Samano scheduled as outpatient Ongoing tobacco abuse Counseled to quit smoking DVT Px: Lovenox SQ Code Status Full code Disposition Plan to discharge home today Admission and Anticipated Discharge Date Admission Date: October 14, 2020 Subjective Patient is seen and examined at bedside States feeling tired today Left upper extremity numbness, tingling, pain improved but still mildly weak Denies chest pain, shortness of breath, dizziness, nausea, abdominal pain No other focal weakness Discussed with neurology today Review of Systems Review of Systems: All systems reviewed & are unremarkable except as noted in HPI & below Physical Exam Physical Exam: Physical Exam: Vitals signs as noted above General Appearance:Moderately built and nourished, no apparent distress Head: normocephalic, Atraumatic Eyes: normal inspection, EOMI Neck: supple, Trachea midline Respiratory/Chest: Normal breath sounds, CTA, No accessory muscle use Cardiovascular: S1, S2, No murmur Abdomen/GI:Soft, Non tender, Bowel sounds present Extremities/Musculoskelatal:normal inspection, no edema Neurologic/Psych:AAOX3, grossly no focal neurological deficits Skin: normal color, warm Results & Data Results & Data ([facility]) Vital Signs (Past 12 Hours) Vital Signs Temp Pulse Pulse Pulse Pulse Resp BP 10/14/20 15:52 36.8 C 81 18 116/64 10/14/20 11:27 36.7 C 74 18 120/70 10/14/20 08:00 74 10/14/20 07:04 36.5 C 82 16 10/14/20 04:15 36.6 C 77 15 BP Pulse Ox 10/14/20 15:52 95 10/14/20 11:27 94 10/14/20 08:00 10/14/20 07:04 118/73 96 10/14/20 04:15 117/69 96 Laboratory Results Short CBC 10/13/20 10/14/20 Range/Units 21:35 07:21 WBC 8.33 6.86 (4.8-10.8) K/uL Hgb 13.5 12.9 (12.0-16.0) g/dL Hct 39.9 38.2 (37-47) % Plt Count 293 255 (130-400) K/uL BMP 10/13/20 10/14/20 21:35 07:21 Sodium 142 140 Potassium 3.7 3.8 Chloride 110 H 108 H Carbon Dioxide 22 25 BUN 21 H 16 Creatinine 1.07 0.75 D Glucose 106 H 99 Calcium 9.2 8.8 Cardiac Enzymes 10/13/20 10/14/20 Range/Units 21:35 07:21 Total Creatine Kinase 81 (26-192) U/L Troponin I < 0.015 < 0.015 (0-0.045) ng/ml Liver Function 10/13/20 Range/Units 21:35 Total Bilirubin 0.3 (0.2-1) mg/dl AST 26 (15-37) U/L ALT 30 (12-78) U/L Alkaline Phosphatase 107 (45-117) U/L Albumin 3.9 (3.4-5.0) gm/dl
[2020-10-14] MEDS ORDERED: STROKE PATIENT DISCHARGE STA (16:32)
--- NOTE | 2020-10-14 16:46 | Discharge Summary ---
Date of Service October 14, 2020 Admission HPI Per Admitting Provider History obtained from patient and records. Medical history significant for breast cancer status post surgery, radiation, on Letrozole Rx, recurrent syncope status post implantable loop recorder placement (2019), hx PFO, ongoing tobacco abuse. Patient was watching television last night when she noted sudden onset achy left upper extremity pain with associated weakness and tingling of the hands. No unusual neck pain or recollection of recent trauma.. No prior episodes. No chest pain, no S OB. Stroke alert called upon arrival at the ER. Aspirin given at the ER. Symptoms currently resolved. Medical History as above Surgical History : Breast biopsy, partial mastectomy, BTL Family History : Breast cancer, DM, migraine Personal/Social history : Sick cigarettes a day, no EtOH intake, currently unemployed/prior restaurant work Admission Exam Per Admitting Provider Physical Exam Physical Exam: GENERAL: Comfortable, pleasant, no respiratory distress SKIN: Normal color, warm HEENT: [place] palpebral conjunctivae, no ptosis, dry buccal mucosa NECK : Supple, no tenderness CHEST : CTA, no tenderness HEART : RRR, no obvious murmurs ABDOMEN: Some distention, nontender EXTREMITIES : No LE swelling/tenderness, no other conspicuous deformities noted NEUROLOGIC : Coherent, no facial asymmetry, no other gross focality Principal Diagnosis Left arm weakness Stroke like symptoms Can note rule out transient ischemic attack Discharge Data Allergies Allergy/AdvReac Type Severity Reaction Status Date / Time No Known Allergies Allergy Verified 10/13/20 21:42 Consultations 10/13/20 23:06 ED Decision to Admit Stat 10/14/20 02:20 Consult Case Management - Discharge Planning Routine Consult Neurology Routine Procedures Performed --MRI Brain:No acute intracranial abnormality, specifically there is no acute or subacute infarct. --Head/Neck CTA:There is no hemorrhage, mass effect, or evidence of acute territorial ischemia by CT criteria noting angiographic phase technique. Unremarkable CT angiogram of the brain. Unremarkable CT angiogram of the neck. Ordered Studies 10/13/20 21:54 CT angio head w con Urgent CT angio neck with con Urgent CT head/brain wo con Urgent 10/14/20 00:35 MR brain wo con Routine US venous doppler UE LT Urgent Hospital Course (1) Left arm weakness: Left arm weakness Strokelike symptoms Can Not R/O TIA. DD: Complex Migraine --MRI Brain:No acute intracranial abnormality, specifically there is no acute or subacute infarct. --Head/Neck CTA:There is no hemorrhage, mass effect, or evidence of acute territorial ischemia by CT criteria noting angiographic phase technique. Unremarkable CT angiogram of the brain. Unremarkable CT angiogram of the neck. -ECHO: EF 60 to 65%. No significant valvular disease. No ASD. -Lipid Panel: WNL -EEG:This is a normal awake and drowsy routine EEG. There is no evidence of focal slowing or epileptiform activity. -PT/OT eval done -Has implanted loop recorder in 2019 -Appreciate neurology input -Started on aspirin, magnesium and riboflavin -Needs follow-up with neurology in 4 to 6 weeks upon discharge -Advised to quit tobacco use Breast cancer S/P surgery, radiation on Letrozole Rx Recurrent syncope S/P Implantable loop recorder placement (2018), No rhythm issues on monitor Advised to follow-up with cardiology as outpatient Has follow-up with Dr. Samano scheduled as outpatient Ongoing tobacco abuse Counseled to quit smoking DVT Px: Lovenox SQ Code Status Full code Disposition Plan to discharge home today Total Time Total Time Spent Total Time Spent (In Minutes): 35 minutes Total Time Includes: Examination of the Patient, Discharge Planning, Medication Reconciliation, Communication With Other Providers and Other Discharge Plan Discharge Items Patient Disposition: Home - Self-Care Reason For Visit: TRANSIENT LUE WEAKNESS Discharge Diagnosis: Left arm weakness Stroke like symptoms Can note rule out transient ischemic attack Activity: Per Instructions section Exercise/Sports: Gradually increase as tolerated Non-emergency contact: Primary Care Provider and Neurologist Call non-emergency contact if: you have any medication questions, your symptoms worsen, your pain is not controlled, your pain is worsening, your pain is unusual for you, your pain is concerning for you and you have a fever Follow-up/Referrals: Brennan Mcleod MD [Primary Care Provider] - Diet: Heart Healthy Addtl Attending Provider Instructions: Follow-up with your primary care physician Dr. Mcleod on October 18, 2020 at 2: 40 PM Follow-up with your neurologist Merry Wade PA-C on November 15, 2020 at 11:20 AM Seek immediate medical attention if your symptoms reoccur or worsen Quit smoking tobacco as advised. Start taking aspirin 81 mg daily as recommended by your neurologist. Risk Factors for Stroke: You can reduce your chances of stroke by working with your medical provider to adopt a healthy lifestyle. Some specific ways to lower your chance of stroke are: * If you are a smoker, now is the time to stop smoking cigarettes * If you are diabetic, improve the control of your blood sugars * Avoid excessive amounts of alcohol * Control high blood pressure * Lose weight if you are overweight * Be sure to lead an active lifestyle * Eat a healthy diet low in salt, cholesterol and fat You should know about other risk factors for stroke that you are unable to control. These include: * Age 55 years or older * Male gender * Certain racial groups: , or / * Family History of Stroke, Mini stroke or Heart Attack * Sickle Cell Disease Follow Up: It is important for you to keep your follow up appointments with your medical provider. Who to Call and When: Medical Emergencies: Call 911 immediately if you experience any of the following warning signs and symptoms of Stroke: * Sudden numbness or weakness of the face, arm or leg, especially on one side of the body * Sudden confusion, trouble speaking or understanding * Sudden trouble seeing in one or both eyes * Sudden trouble walking, dizziness, loss of balance or coordination * Sudden severe headache with no cause Do not delay calling 911 if you experience any warning signs or symptoms of a stroke. Delay in seeking medical attention may affect what treatments can be given to you. . Pending Studies at Discharge: No Stand-Alone Forms: My [facility], Smoking Cessation Medications and DC Order Prescriptions: New aspirin 81 mg Tablet,Delayed Release (Dr/Ec) 81 mg PO QAM Qty: 30 RF: 1 magnesium oxide 400 mg (241.3 mg magnesium) tablet 400 mg PO DAILY Qty: 30 RF: 0 riboflavin (vitamin B2) 400 mg tablet 400 mg PO DAILY Qty: 30 RF: 0 Continued multivitamin Tablet 1 tab PO DAILY RF: 0 Zyrtec 10 mg capsule 10 mg PO DAILY PRN (Reason: Allergy Symptoms) RF: 0 calcium carbonate-vitamin D3 [Calcium 600 + D(3)] 600 mg(1,500mg) -400 unit tablet 1 tab PO BID RF: 0 Discharge Orders: Discharge Order (Routine); Ordered 10/14/20 Ordered By: Jerod Pulido/Other Patient Handouts: A1C Admission Data Admit Date/Time: 10/14/20 00:39 Attending Provider: Jerod Ortega Admit Provider: Dileep Zhu Primary Care Provider: Brennan Mcleod Other Providers: Dileep Zhu ; Merry Wade ; Yefri Javier Kathleen ; Kennedy Moon Other Interventions: Discharge Summary Assessment (RN) Last Done: 10/14/20 16:49
--- NOTE | 2020-10-14 16:48 | Pharmacy Report ---
Pharmacist Stroke Counseling - Date of Service October 14, 2020 - Scope: Pharmacy has been consulted to provide medication discharge counseling for this patient admitted with [ischemic stroke] [hemorrhagic stroke] [transient ischemic attack] as per the Pharmacist Discharge Counseling for Stroke Patients Prot ocol. - Medications on Discharge: Home Medications Medication Instructions Recorded Confirmed cetirizine 10 mg capsule 10 mg PO DAILY PRN 12/31/19 10/13/20 multivitamin 1 tab PO DAILY 12/31/19 10/13/20 calcium carbonate-vitamin D3 1 tab PO BID 10/13/20 10/13/20 [Calcium 600 + D(3)] New Rx's Medication Instructions Recorded aspirin 81 mg PO QAM #30 tab 10/14/20 magnesium oxide 400 mg PO DAILY #30 tab 10/14/20 riboflavin (vitamin B2) 400 mg PO DAILY #30 tab 10/14/20 - Action: The above medications, specifically ones for stroke treatment/prophylaxis, have been reviewed in detail with the patient and/or patient business services sales representative(s) prior to discharge. This includes indication, common adverse reactions, drug interactions, and medication administration. Medication counseling has been employed using the teach-back method to ensure understanding. - Outcome: The patient and/or patient business services sales representative(s) have demonstrated understanding of the medications. Additional comments: [] Thank you for allowing pharmacy to be involved in the care of this patient. Please call [phone] with any additional questions
== END 2020-10-14 17:15 | disposition home or self-care (01) ==
LOC: ED 21:16 → 2W 21:16